=== PATIENT | female | born 1935 | race Caucasian/White ===

== ENCOUNTER 2017-01-15 14:00 | Emergency (ER) | payer MEDICAID, MEDICARE ==
[2017-01-15 14:14] VITALS: BP 102/66
--- NOTE | 2017-01-15 14:39 | EDM.PDOC ---
ED HPI Trauma - General Chief Complaint: Lower Extremity Injury/Pain Stated Complaint: IN BY AMBULANCE FALL Time Seen by Provider: 01/15/17 14:30 Source: Reports: Patient, EMS, correction records - History of Present Illness INITIAL COMMENTS - FREE TEXT/NARRATIVE: This 81 yo female patient was brought to the ED by [facility] due to a fall and left hip/pelvic pain. The patient was found after a fall in the shelter. The shelter staff reported that the patient had lateral rotation of the left leg and reported pain in her hip. The patient was given a Tramadol (PO) while in the shelter. EMS transported the patient on a vacuum splint. The patient reported pain in her left hip and pelvis while in the ED. The patient has a history of a CVA with speech complications. Symptom Onset Date: 01/15/17 Occurred When: just prior to arrival Occurred Where: home (correction) Method of Injury: fall Severity: moderate Pain/Injury Location: Reports: lower extremity, left Consciousness: Reports: no loss of consciousness Associated Symptoms: Reports: no other symptoms Allergies/ADRs: Allergies ampicillin Allergy (Verified 01/15/17 14:19) Cannot Remember cephalexin monohydrate [From Keflex] Adverse Reaction (Unknown, Verified 14:19) Nausea and Vomiting morphine Adverse Reaction (Unknown, Verified 01/15/17 14:19) "passed out" Patient states she "passed out and didn't wake up until the next day." Penicillins Adverse Reaction (Unknown, Verified 01/15/17 14:19) Vaginitis/yeast infection Home Medications: Ambulatory Orders Furosemide [Lasix] 20 mg PO DAILY 04/04/15 [Confirmed 01/15/17] Metoprolol Succinate [Toprol XL 100mg] 100 mg PO DAILY 08/19/15 [Confirmed 01/15] Oxybutynin [Oxybutynin ER] 10 mg PO DAILY 08/19/15 [Confirmed 01/15/17] Pantoprazole Sodium [Protonix] 40 mg PO BID 08/19/15 [Confirmed 01/15/17] Meclizine [Antivert] 12.5 mg PO Q6H PRN 09/18/15 [Confirmed 01/15/17] traMADol [Ultram] 50 mg PO Q8HR PRN 09/18/15 [Confirmed 01/15/17] Acetaminophen [Tylenol Extra Strength] 500 mg PO ASDIRECTED PRN 04/06/16 [ Confirmed 01/15/17] Bisacodyl 10 mg RC DAILY PRN 04/06/16 [Confirmed 01/15/17] Magnesium Hydroxide [Milk of Magnesia] 30 ml PO DAILY PRN 04/06/16 [Confirmed ] Na Phos,M-B/Na Phos,Di-Ba [Enema Ready To Use] 1 applic RC ASDIRECTED PRN [Confirmed 01/15/17] Sennosides/Docusate Sodium [Senna-Docusate Sodium Tablet] 1 tab PO ASDIRECTED PRN 04/06/16 [Confirmed 01/15/17] Warfarin Sodium [Coumadin] 6 mg PO .MON,TH 04/06/16 [Confirmed 01/15/17] Warfarin [Coumadin] 4 mg PO .SUNTUEWEDFRISAT 04/06/16 [Confirmed 01/15/17] atorvaSTATin [Lipitor] 40 mg PO BEDTIME 04/06/16 [Confirmed 01/15/17] Acetaminophen [Tylenol] 650 mg RECTAL Q6H 01/15/17 [Confirmed 01/15/17] Magnesium 250 mg PO BID 01/15/17 [Confirmed 01/15/17] Potassium Chloride 20 meq PO BID 01/15/17 [Confirmed 01/15/17] Past Medical History HEENT History: Reports: Impaired vision Other HEENT History: Dental caires Cardiovascular History: Reports: Afib, CAD, High cholesterol, Hypertension, [place] Respiratory History: Reports: None Gastrointestinal History: Reports: GERD Genitourinary History: Reports: None 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 Musculoskeletal History: Reports: Osteoarthritis Neurological History: Reports: CVA Psychiatric History: Reports: Dementia Endocrine/Metabolic History: Reports: None Hematologic History: Reports: None Immunologic History: Reports: None Oncologic (Cancer) History: Reports: None Dermatologic History: Reports: None - Infectious Disease History Infectious Disease History: Reports: None - Past Surgical History Head Surgeries/Procedures: Reports: None Social & Family History - Family History Family Medical History: Noncontributory - Tobacco Use Smoking Status *Q: Never Smoker Second Hand Smoke Exposure: No - Caffeine Use Caffeine Use: Reports: Coffee - Alcohol Use Days Per Week of Alcohol Use: 0 Number of Drinks Per Day: 1 Total Drinks Per Week: 0 - Recreational Drug Use Recreational Drug Use: No - Living Situation & Occupation Living situation: Reports: , alone Occupation: retired Review of Systems - Review of Systems Review Of Systems: ROS reveals no pertinent complaints other than HPI. Trauma Exam - Physical Exam Exam: See Below Exam Limited By: Other (Diffucult communication with the patient due to CVA) General Appearance: Reports: alert, WD/WN, anxious, moderate distress, thin Head: Reports: atraumatic, normocephalic Eyes: bilateral eye: EOMI, normal inspection, PERRL Ears: Reports: normal external exam, normal canal, hearing grossly normal, normal TMs Nose: Reports: normal inspection, normal mucousa, no blood Throat/Mouth: Reports: Normal inspection, Normal lips, Normal teeth, Normal gums , Normal oropharynx, Normal voice, No airway compromise Neck: Reports: non-tender, full range of motion, normal alignment, normal inspection Respiratory Exam: Reports: no respiratory distress, lungs clear, normal breath sounds Cardiovascular: Reports: normal peripheral pulses, regular rate, rhythm, no edema, no gallop, no JVD, no murmur, no rub GI/Abdominal: Reports: normal bowel sounds, soft, non tender, no organomegaly, no distention, no abnormal bruit, no mass (Female) Exam: Deferred Rectal (Female) Exam: Deferred Extremities: Reports: bony-point tenderness (left pelvis), pain with movement ( left hip), tenderness Neurologic: Reports: smoke tester II-XII nml as tested, no motor/sensory deficits, alert , normal mood/affect, oriented x 3 Skin: Reports: Normal color, Warm/dry - Julian Coma Score Best Eye Response (Cayce): (4) open spontaneously Best Verbal Response (Julian): (5) oriented Best Motor Response (Julian): (6) obeys commands Cayce Total: 15 Course - Vital Signs Last Recorded V/S: Last Vital Signs Temp 37.7 C 01/15/17 14:04 Pulse 40 L 01/15/17 14:04 Resp 18 01/15/17 14:04 BP 102/66 01/15/17 14:04 Pulse Ox 95 01/15/17 14:04 - Orders/Labs/Meds Orders: Active Orders 24 hr Category Date Time Status EKG Documentation Completion [RC] URGENT Care 01/15/17 14:32 Active Labs: Laboratory Tests 01/15/17 01/15/17 01/15/17 Range/Units 14:40 14:40 14:40 WBC 10.6 H (5.0-10.0) 10^3/uL RBC 4.14 L (4.2-5.4) 10^6/uL Hgb 12.6 (12.0-16.0) g/dL Hct 37.6 (37.0-47.0) % MCV 90.8 (80-100) fL MCH 30.4 (27.0-34.0) pg MCHC 33.5 (33.0-35.0) g/dL Plt Count 256 (150-450) 10^3/uL Neut % (Auto) 71.1 (42.2-75.2) % Lymph % (Auto) 18.5 L (20.5-50.1) % [place] % (Auto) 8.9 H (2-8) % Eos % (Auto) 1.2 (1.0-3.0) % Baso % (Auto) 0.3 (0.0-1.0) % PT 14.5 H (9.0-12.0) SEC INR 1.4 H (0.9-1.2) Sodium 135 (135-145) mmol/L Potassium 4.0 (3.6-5.0) mmol/L Chloride 99 L (101-111) mmol/L Carbon Dioxide 29.0 (21.0-31.0) mmol/L Anion Gap 11.0 BUN 18 (7-18) mg/dL Creatinine 0.9 (0.6-1.3) mg/dL Est Cr Clr Drug Dosing 34.02 mL/min Estimated GFR (MDRD) 60 BUN/Creatinine Ratio 20.00 Glucose 106 H (74-105) mg/dL Calcium 8.7 (8.4-10.2) mg/dl Total Bilirubin 0.6 (0.2-1.0) mg/dL AST 28 (10-42) IU/L ALT 31 (10-60) IU/L Alkaline Phosphatase 87 (42-121) IU/L Troponin I 0.03 H* (0.00-0.02) ng/ml Total Protein 6.8 (6.7-8.2) g/dl Albumin 3.8 (3.2-5.5) g/dl Globulin 3.0 Albumin/Globulin Ratio 1.27 Departure - Departure Time of Disposition: 15:26 Disposition: DC/Tfer to Acute Hospital 02 Condition: fair Clinical Impression: Left displaced femoral neck fracture Forms: Interfacility Transfer EMTALA Care Plan Goals: Discussed the history, exam, lab and CT results with Dr. Larkin (Ortho with [facility] ). Dr. Larkin accepted the patient for continued evaluation and management. The patient will be transferred by [facility]. - My Orders Last 24 Hours: My Active Orders 01/15/17 14:32 EKG Documentation Completion [RC] URGENT - Assessment/Plan Last 24 Hours: My Active Orders 01/15/17 14:32 EKG Documentation Completion [RC] URGENT
--- NOTE | 2017-01-15 14:59 | CT ---
Clinical history: 81-year-old female with history of "stroke" who fell and now left hip pain. Scan technique: Volume acquisition of data emergency unenhanced CT scan pelvis and hips obtained wit h patient lying supine on the Siemens multi slice scanner [facility]. All data archived in the PACS system for storage, reformatting and study. Interpretation: *Acute, new left femoral neck fracture (with some proximal retraction of the ipsilat eral femur shaft) since 15 June 2015 exam. Symmetric spacing normal-appearing SI and hip joints and no sign of other pelvic or contralateral ri ght hip fracture. No hip dislocation. Chronic multilevel lower lumbar disc disease and reactive hypertrophic arthritic changes osteoporoti c patient. CONCLUSION: Acute left femoral neck fracture.
--- NOTE | 2017-01-15 15:09 | CT ---
CLINICAL HISTORY: 81-year-old female stroke victim complaining of left hip pain after a fall ("left femoral neck fracture" identified on emergency CT scan pelvis). SCAN TECHNIQUE: Volume acquisition of data both femurs (lower extremities) obtained with this invali d patient lying supine on the Siemens multislice CT scanner [place], [place]. All data archived in the PACS system for storage, reformatting and study. INTERPRETATION: Abnormal. Acute left femoral neck fracture confirmed (proximal retraction left femoral shaft). Incidentally demonstrated small bone infarct within the medullary space, proximal left humerus. No sign of other long bone fracture, either femur. No dislocation either hip or knee joints.
--- NOTE | 2017-02-06 10:19 | EKG ---
01/15/2017- NICOLAS COBB - EKG done on an 81-year-old female showing atrial fibrillation with heart rate of 57 beats per minute. No acute ST-T wave changes. [facility] /[id number]
== END 2017-01-15 15:57 ==
LOC: DL.ED 14:00
DX: S72.145A Nondisplaced intertrochanteric fracture of left femur, initial encounter for closed fracture (principal); W19.XXXA Unspecified fall, initial encounter; Y92.129 Unspecified place in nursing home as the place of occurrence of the external cause; I48.91 Unspecified atrial fibrillation; I25.10 Atherosclerotic heart disease of native coronary artery without angina pectoris; E78.00 Pure hypercholesterolemia, unspecified; I10 Essential (primary) hypertension; K21.9 Gastro-esophageal reflux disease without esophagitis; I25.2 Old myocardial infarction; Z86.73 Personal history of transient ischemic attack (TIA), and cerebral infarction without residual deficits; F03.90 Unspecified dementia, unspecified severity, without behavioral disturbance, psychotic disturbance, mood disturbance, and anxiety; Z88.8 Allergy status to other drugs, medicaments and biological substances; Z79.899 Other long term (current) drug therapy; Z79.01 Long term (current) use of anticoagulants
CPT/HCPCS: 36415; 72192; 73700-LT; 80053; 84484; 85025; 85610; 93005; 93010; 99284; 99285

== ENCOUNTER 2018-12-02 15:19 | Emergency (ER) | payer MEDICARE, MEDICAID ==
--- NOTE | 2018-12-02 15:15 | EDM.PDOC ---
ED HPI GENERAL MEDICAL PROBLEM - General Chief Complaint: Head Injury Stated Complaint: PT HIT HEAD MAY NEED STITCHES Time Seen by Provider: 12/02/18 15:09 Source of Information: Reports: EMS, Old Records, RN, RN Notes Reviewed, Other ( Caregiver) History Limitations: Reports: Physical Impairment (Chronic expressive aphasia) - History of Present Illness INITIAL COMMENTS - FREE TEXT/NARRATIVE: Pt arrives to ER by POV after slipping out of a chair at the [employer] and cutting her Rt scalp. Caregiver witnessed the fall and denies LOC. Pt denies neck pain. No other injuries. No C-collar applied or indicated. Pt converted to a TRAUMA at 1509HRS due to anticoag. on coumadin. Onset: Today Location: Reports: Head Severity: Mild Improves with: Reports: None Worsens with: Reports: None Associated Symptoms: Reports: No Other Symptoms - Related Data Allergies Allergy/AdvReac Type Severity Reaction Status Date / Time ampicillin Allergy Cannot Verified 01/15/17 14:19 Remember cephalexin monohydrate AdvReac Unknown Nausea and Verified 01/15/17 14:19 [From Keflex] Vomiting morphine AdvReac Unknown "passed Verified 01/15/17 14:19 out" Penicillins AdvReac Unknown Vaginitis/yeast Verified 01/15/17 14:19 infection Home Meds: Home Meds Furosemide [Lasix] 20 mg PO DAILY 04/04/15 [History] Metoprolol Succinate [Toprol XL 100mg] 100 mg PO DAILY 08/19/15 [History] Oxybutynin [Oxybutynin ER] 10 mg PO DAILY 08/19/15 [History] Pantoprazole Sodium [Protonix] 40 mg PO BID 08/19/15 [History] Meclizine [Antivert] 12.5 mg PO Q6H PRN 09/18/15 [History] traMADol [Ultram] 50 mg PO Q8HR PRN 09/18/15 [History] Acetaminophen [Tylenol Extra Strength] 500 mg PO ASDIRECTED PRN 04/06/16 [ History] Bisacodyl 10 mg RC DAILY PRN 04/06/16 [History] Magnesium Hydroxide [Milk of Magnesia] 30 ml PO DAILY PRN 04/06/16 [History] Sennosides/Docusate Sodium [Senna-Docusate Sodium Tablet] 1 tab PO ASDIRECTED PRN 04/06/16 [History] Sodium Phosphate,Blount-Dibasic [Enema Ready To Use] 1 applic RC ASDIRECTED PRN [History] Warfarin Sodium [Coumadin] 6 mg PO .MON,TH 04/06/16 [History] Warfarin [Coumadin] 4 mg PO .SUNTUEWEDFRISAT 04/06/16 [History] atorvaSTATin [Lipitor] 40 mg PO BEDTIME 04/06/16 [History] Acetaminophen [Tylenol] 650 mg RECTAL Q6H 01/15/17 [History] Magnesium 250 mg PO BID 01/15/17 [History] Potassium Chloride 20 meq PO BID 01/15/17 [History] Past Medical History HEENT History: Reports: Impaired Vision Other HEENT History: Dental caires Cardiovascular History: Reports: Afib, CAD, High Cholesterol, Hypertension, [place] Respiratory History: Reports: None Gastrointestinal History: Reports: GERD Genitourinary History: Reports: None 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 Musculoskeletal History: Reports: Osteoarthritis Neurological History: Reports: CVA Psychiatric History: Reports: Dementia Endocrine/Metabolic History: Reports: None Hematologic History: Reports: None Immunologic History: Reports: None Oncologic (Cancer) History: Reports: None Dermatologic History: Reports: None - Infectious Disease History Infectious Disease History: Reports: None - Past Surgical History Head Surgeries/Procedures: Reports: None Social & Family History - Family History Family Medical History: Noncontributory - Caffeine Use Caffeine Use: Reports: Coffee - Living Situation & Occupation Living situation: Reports: , Extended Care Facility Occupation: Retired Review of Systems - Review of Systems Review Of Systems: Unable To Obtain (No verbal pt.) ED EXAM, GENERAL - Physical Exam Exam: See Below Exam Limited By: No Limitations General Appearance: Alert, WD/WN, No Apparent Distress Eye Exam: Bilateral Eye: EOMI, Normal Inspection, PERRL Ears: Normal External Exam, Normal Canal, Hearing Grossly Normal, Normal TMs Nose: Normal Inspection, Normal Mucosa, No Blood Throat/Mouth: Normal Inspection, Normal Lips, Normal Teeth, Normal Gums, Normal Oropharynx, Normal Voice, No Airway Compromise Head: Normocephalic, Other (3cm linear laceration at right temporal scalp laceration, no active bleeding, no FB) Neck: Normal Inspection, Supple, Non-Tender, Full Range of Motion, Other (No C- collar) Respiratory/Chest: No Respiratory Distress, Lungs Clear, Normal Breath Sounds, No Accessory Muscle Use, Chest Non-Tender Cardiovascular: Regular Rate, Rhythm, No Edema GI/Abdominal: Normal Bowel Sounds, Soft, Non-Tender, No Distention Back Exam: Normal Inspection, Full Range of Motion, NT Extremities: Normal Inspection, Normal Range of Motion, Non-Tender, Normal Capillary Refill, No Pedal Edema Neurological: Alert, Oriented, CN II-XII Intact, Normal Cognition, Normal Gait, No Motor/Sensory Deficits, Other (GCS 15 on arrival, and 15 at d/c at 1600HRS) Psychiatric: Normal Affect, Normal Mood Skin Exam: Warm, Dry, Normal Color, No Rash ED TRAUMA PROCEDURES - Laceration/Wound Repair Right Lateral Head Lac/Wound Length In cm: 3 Appearance: Linear, Clean Distal NVT: Neuro & Vascular Intact Anesthetic Type: Local Local Anesthesia - Lidocaine (Xylocaine): 1% with EPI Local Anesthetic Volume: 4cc Skin Prep: Saline Exploration/Debridement/Repair: Wound Explored, In a Bloodless Field, Explored to Base, Minimal Debridement, Minimally Undermined Closed With: Stoney # of Sutures: 7 Suture Type: Interrupted Drain Placement: No Tetanus Status Addressed: Yes Complications: No Course - Vital Signs Last Recorded V/S: See paper trauma chart for VS. - Orders/Labs/Meds Orders: Active Orders 24 hr Category Date Time Status Vaccines to be Administered [RC] PER UNIT ROUTINE Care 12/02/18 15:18 Active Head wo Cont [CT] Stat Exams 12/02/18 15:15 Taken Labs: Laboratory Tests 12/02/18 12/02/18 12/02/18 Range/Units 15:14 15:14 15:14 WBC 9.7 (5.0-10.0) 10^3/uL RBC 4.62 (4.2-5.4) 10^6/uL Hgb 14.3 D (12.0-16.0) g/dL Hct 42.2 (37.0-47.0) % MCV 91.3 (80-100) fL MCH 31.0 (27.0-34.0) pg MCHC 33.9 (33.0-35.0) g/dL Plt Count 285 (150-450) 10^3/uL Neut % (Auto) 63.8 (42.2-75.2) % Lymph % (Auto) 24.8 (20.5-50.1) % [place] % (Auto) 10.1 H (2-8) % Eos % (Auto) 0.9 L (1.0-3.0) % Baso % (Auto) 0.4 (0.0-1.0) % PT 20.7 H (9.0-12.0) SEC INR 2.1 H (0.9-1.2) APTT 30.3 (22.0-34.0) SEC Sodium 133 L (135-145) mmol/L Potassium 4.2 (3.6-5.0) mmol/L Chloride 98 L (101-111) mmol/L Carbon Dioxide 23.0 (21.0-31.0) mmol/L Anion Gap 16.2 BUN 19 H (7-18) mg/dL Creatinine 0.9 (0.6-1.3) mg/dL Est Cr Clr Drug Dosing TNP Estimated GFR (MDRD) 60 BUN/Creatinine Ratio 21.11 Glucose 169 H (74-105) mg/dL Calcium 8.9 (8.4-10.2) mg/dl Total Bilirubin 0.8 (0.2-1.0) mg/dL AST 27 (10-42) IU/L ALT 24 (10-60) IU/L Alkaline Phosphatase 103 (42-121) IU/L Total Protein 7.3 (6.7-8.2) g/dl Albumin 3.9 (3.2-5.5) g/dl Globulin 3.4 Albumin/Globulin Ratio 1.15 Meds: Medications Discontinued Medications Generic Name Dose Route Start Last Admin Trade Name Freq PRN Reason Stop Dose Admin Diphtheria/Tetanus/Acell Pertussis 0.5 ml 12/02/18 15:17 12/02/18 15:40 Adacel IM 12/02/18 15:18 0.5 ml .ONCE ONE Administration Lidocaine/Epinephrine 20 ml 12/02/18 15:17 12/02/18 15:43 Xylocaine 1% With Epinephrine 1:100,000 INJECT 12/02/18 15:18 20 ml ONETIME ONE Administration - Radiology Interpretation Free Text/Narrative:: [facility] Final Radiology Report Call: [phone] assistance Online chat: [email or web address] Name: NICOLAS COBB Age: 82Years F Date: 12/02/2018 SSN: -- : [id number] Study: CT HEAD WO Requesting Physician: ALAYNA SAINI Images: [id number] Addl Studies: Provided Clinical History: Contrast: Without Contrast Medium: Contrast Amount: Contrast Method: Page 1 of 2 EXAM: CT Head Without Contrast EXAM DATE/TIME: 12/02/2018 3:19 PM CLINICAL HISTORY: 82 years old, female; Injury or trauma; Fall; Initial encounter; Abrasion; Forehead; Injury date: Today; Injury details: Fell out of [employer] par[employer] chair, hit head on the floor, in warfarin; Patient HX: HX of CVA TECHNIQUE: Axial computed tomography images of the head/brain without contrast. All CT scans at this facility use at least one of these dose optimization techniques: automated exposure control; mA and/or kV adjustment per patient size (includes targeted exams where dose is matched to clinical indication); or iterative reconstruction. Coronal and sagittal reformatted images were created and reviewed. COMPARISON: CT Head wo Cont 04/06/2016 10:28 AM FINDINGS: Brain: There is mild generalized cerebral volume loss. Patchy areas of low attenuation scattered throughout the white matter are nonspecific, but likely represent severe small vessel ischemic changes. Areas of encephalomalacia are noted within the right parietal and medial temporo-occipital lobes, as well as the left parieto-occipital and temporal lobes, compatible with chronic infarcts. There is no evidence of midline shift, mass effect or cerebral edema. No acute intracranial hemorrhage is identified. Ventricles: Normal. No ventriculomegaly. Bones/joints: Unremarkable. No acute fracture. Sinuses: Visualized sinuses are unremarkable. No acute sinusitis. Mastoid air cells: Visualized mastoid air cells are unremarkable. No mastoid effusion. NICOLAS COBB | Final Radiology Report CONFIDENTIALITY STATEMENT This report is intended only for use by the referring physician, and only in accordance with law. If you received this in error, call [phone]. Page 2 of 2 Soft tissues: Unremarkable. Vasculature: Atherosclerotic calcification is noted in the intracranial vertebral arteries and cavernous portions of the internal carotid arteries. IMPRESSION: No acute intracranial abnormality. Chronic changes as above. Thank you for allowing us to participate in the care of your patient. Dictated and Authenticated by: Prakash Daniels MD 12/02/2018 3:43 PM Central Time ([place] & [place]) Departure - Departure Time of Disposition: 15:51 Disposition: Home, Self-Care 01 Condition: Good Clinical Impression: Fall from chair Qualifiers: Encounter type: initial encounter Qualified Code(s): W07.XXXA - Fall from chair , initial encounter Scalp laceration Qualifiers: Encounter type: initial encounter Qualified Code(s): S01.01XA - Laceration without foreign body of scalp, initial encounter - Discharge Information *PRESCRIPTION DRUG MONITORING PROGRAM REVIEWED*: No *COPY OF PRESCRIPTION DRUG MONITORING REPORT IN PATIENT CORNEL: No Instructions: Stitches, [place], or Adhesive Wound Closure, [id number] Forms: ED Department Discharge Additional Instructions: Follow up in clinic in 7 to 10 days for staple removal. May wash hair after 24 hours. - My Orders Last 24 Hours: My Active Orders 12/02/18 15:15 Head wo Cont [CT] Stat 12/02/18 15:18 Vaccines to be Administered [RC] PER UNIT ROUTINE - Assessment/Plan Last 24 Hours: My Active Orders 12/02/18 15:15 Head wo Cont [CT] Stat 12/02/18 15:18 Vaccines to be Administered [RC] PER UNIT ROUTINE
[~2018-12-02 15:19] MED LIST: Diphtheria,Pertussis(Acell),Tetanus Vaccine 0.5 ML SDV IM ONE; Lidocaine 1% with EPINEPHrine 1:100,000 20 ML MDV INJECT ONE
[2018-12-02 15:49] LABS: ANION GAP 16.2; CHLORIDE,CL 98 mmol/L (101-111); SODIUM,NA 133 mmol/L (135-145)
== END 2018-12-02 16:11 | disposition home or self-care (01) ==
LOC: DL.ED 15:19
DX: S01.01XA Laceration without foreign body of scalp, initial encounter (principal); I25.2 Old myocardial infarction; I10 Essential (primary) hypertension; Z88.5 Allergy status to narcotic agent; Z23 Encounter for immunization; Z88.1 Allergy status to other antibiotic agents; Z88.8 Allergy status to other drugs, medicaments and biological substances; Z79.899 Other long term (current) drug therapy; W07.XXXA Fall from chair, initial encounter
CPT/HCPCS: 12002; 36415; 70450; 80053; 85025; 85610; 85730; 90471; 90715; 99283; 99284